=== PATIENT | female | born 1950 | race Caucasian/White ===

== ENCOUNTER 2016-08-12 01:53 | Inpatient (IN) | payer OTHER ==
[~2016-08-12] VITALS: Ht 144.8 cm; Wt 57.2 kg
[~2016-08-12 01:53] MED LIST: PRAVASTATIN SOD40 M2 PO
--- NOTE | 2016-08-12 08:33 | Admission Core Measures ---
Admission Meds I reviewed the following Meds: Current Medications Sig/Radha Start time Last Medication Dose Stop Time Status Admin Cefazolin Sodium 2,000 MG ONCE 08/12 0000 NR (Kefzol-Ancef Inj) 08/12 2359 Pravastatin Sodium 20 MG 1700 08/12 1700 UNVr (Pravachol) Acute Coronary Syndrome Inclusion Criteria ACS Diagnosis No Inpatient Core Measures LDL Reminder: If No, please order W/I first 24hr of stay Congestive Heart Failure Inclusion Criteria CHF Diagnosis No Cerebrovascular accident Inclusion Criteria CVA/TIA Diagnosis No Inpatient Core Measures Bedside Swallow Eval Reminder: If BSE failed, place ST order Antithrombotic Reminder: Order Antithrombotic Medication by end of day 2 Antithrombotic Reminder: Document Reason Antithrombotic Not ordered by end of day 2 AFIB/Flutter Reminder: If Present, add to problem list AFIB/Flutter Reminder: Order Anticoag Medication for pts with AFIB/Flutter Atherosclerosis Reminder: If Present, add to problem list LDL Reminder: If No, please order W/I first 24hr of stay PT Order Reminder: If No, please order Venous thromboembolism Inpatient Core Measures VTE Risk Factors: Age > 40, [facility] prophylaxis d/t No contraindications No VTE Pharm Prophylaxis d/t No contraindications Inclusion Criteria - Per Current guidelines, there needs to be overlap - treatment for the first 5 days of Warfarin therapy. - Parenteral Anticoagulation (IV or SC) needs to be - given along with Warfarin therapy. VTE Diagnosis No VTE Type NONE VTE Confirmed by (Test) NONE Problem List As ranked by this Provider includes Assessment & Plan 1. Status post total hip replacement, right HOME MEDS Home Med List Pravastatin Sodium 40 MG TABLET 1 TAB PO DAILY CHOLESTEROL (Reported)
--- NOTE | 2016-08-12 08:34 | Surg Short-stay <48hrs Dis Sum ---
Visit Information Visit Dates Admission Date: 08/12/16 Discharge Date: 08/12/16 Surgical Short Stay DC Summary Admission Diagnosis: DJD Final Diagnosis: Same, s/p R THR Procedure(s): R THR - See operative report Summary/Significant Findings: Pt was admitted on 08/12 after undergoing a R THR by Dr Srinivasan. Postoperatively , she worked with PT. Her pain was well controlled on oral medication. She was tolerating a regular diet. She was able to void spontaneously. She was cleared by PT for discharge to home with services. Condition at Discharge: good Discharge Disposition: home health services Discharge instructions provided to patient/family: Yes Post discharge follow-up plan: Keep scheduled appt with Dr Srinivasan. Call sooner if needed.
--- NOTE | 2016-08-12 08:37 | Patient Discharge Instructions ---
Discharge Instructions General Discharge Information You were seen/treated for: Hip pain You had these procedures: Total hip replacement Watch for these problems: Temp >101, increased redness or drainage of wounds Do not soak the wound: Yes No bath, but you may shower: Yes Other wound care: Keep incision clean and dry. May shower, no bathing Diet Continue normal diet: Yes Activity Activity Self Limited: Yes Acute Coronary Syndrome Inclusion Criteria At DC or during hospital stay patient has or had the following: ACS DIAGNOSIS No Discharge Core Measures Meds if any: Prescribed or Continued at Discharge Meds if any: NOT Prescribed or Continued at Discharge Congestive Heart Failure Inclusion Criteria At DC or during hospital stay patient has or had the following: CHF DIAGNOSIS No Discharge Core Measures Meds if any: Prescribed or Continued at Discharge Meds if any: NOT Prescribed or Continued at Discharge Cerebrovascular accident Inclusion Criteria At DC or during hospital stay patient has or had the following: CVA/TIA Diagnosis No Discharge Core Measures Meds if any: Prescribed or Continued at Discharge Meds if any: NOT Prescribed or Continued at Discharge Venous thromboembolism Inclusion Criteria VTE Diagnosis No VTE Type NONE VTE Confirmed by (Test) NONE Discharge Core Measures - Per Current guidelines, there needs to be overlap - treatment for the first 5 days of Warfarin therapy. - If discharged on Warfarin prior to 5 days of - overlap therapy, the patient will need to be - assessed for post discharge needs including - *Post discharge parental anticoagulation - *Warfarin and/or parental anticoagulation education - *Follow up date to check INR post discharge At least 5 days overlap therapy as Inpatient No Meds if any: Prescribed or Continued at Discharge Note: Overlap Therapy is Warfarin and Anticoagulant Meds if any: NOT Prescribed or Continued at Discharge
[2016-08-12] MEDS ORDERED: ASPIRIN EC325 M2 PO (08:39)
[2016-08-12] MEDS ORDERED: MIRALAX17 G1 PO (08:39)
[2016-08-12] MEDS ORDERED: MS CONTIN15 M2 PO (08:39)
[2016-08-12] MEDS ORDERED: DILAUDID2 M1 PO (08:39)
[2016-08-12] MEDS ORDERED: COLACE100 M1 PO (08:39)
--- NOTE | 2016-08-12 10:11 | RADIOLOGY REPORT ---
EXAMINATION: XR HIP, RIGHT CLINICAL INFORMATION: Status post right hip replacement. COMPARISON: None TECHNIQUE: AP and crosstable lateral views of the right hip postop. FINDINGS: Hardware from the total hip replacement is normal. No complications of surgery are identified. There is no dislocation. IMPRESSION: Normal postop hip.
--- NOTE | 2016-08-12 10:50 | PN- Orthopedic ---
Subjective Subjective: Post op check Awake, alert post op Pain tolerable Denies nausea Has not ambulated yet or voided yet Objective Vital Signs and I&Os VSS, afebrile General: alert and oriented times three Chest: clear anteriorly bilaterally, RRR Abd: soft, good bs Ext: warm, no edema, positive sensate, no calf tenderness, good 5/5 [place] BLE Wound: dressed, dry, ice pack in place Assessment/Plan Assessment/Plan 65 yo female s/p R THR pain management PT - WBAT await void Follow up with PT for dc planning Core Measures/Miscellaneous Venous Thromboembolism VTE Risk Factors: Age > 40, Surgery VTE Contraindications: No Contraindications VTE Diagnosis: No VTE Type: NONE VTE Confirmed by (Test): NONE Beta Gregoria Is Beta Gregoria a Home Med? No Antibiotics Is Patient on Antibiotics? Yes If Yes: prophylaxis
[2016-08-12 11:10] VITALS: BP 108/50
--- NOTE | 2016-08-12 11:46 | NUR ---
NURSING NOTE: 1110AM PT ARRIVED TO FLOOR VIA STRETCHER WITH DISTRIBUTION FROM PACU S/P R THR. PT AWAKE, A/OX3, VITALS OBTAIND AND STABLE, DENIES PAIN, AMBULATED WITH P.T/RW TO CHAIR, IVF PER MD ORDER, TEDS PLACED, COFFEE GIVEN, PT ORDERED LUNCH TRAY, INFO PACKET GIVEN, HOURYL ROUDNING EXPLAIND, HIP KIT GIVEN, ICE INTACT, DSG C/D/I. NEEDS IN REACH, FAMILY AT BEDISDE. SEE ADMSSION ASSESSMENTS.
[2016-08-12 13:00] VITALS: BP 106/70
[2016-08-12 14:33] VITALS: BP 106/70
--- NOTE | 2016-08-12 15:26 | NUR ---
NURSING NOTE: ZOFRAN GIVEN FOR NAUSEA, PT DTV AT THIS TIME, STATES "I DONT HAVE THE URGE MY BUTT IS STILL NUMB." Anne CAMPOS AWARE, NO FURTEHR ORDERS. REPORT GIVEN TO NEXT SHIFT RN
--- NOTE | 2016-08-12 15:34 | Operative Report ---
Operative/Inv Procedure Report Surgery Date: 08/12/16 Name of Procedure: Right total hip replacement Pre-Operative Diagnosis: Primary right hip DJD Post-Operative Diagnosis: Same Estimated Blood Loss: 250 Surgeon/Sliver Machine Operator: DALILA PRESCOTT,IZZY Poole Anesthesia: block Operative/Procedure Note Note: Description of Procedure: The patient was taken to the operating room and positively identified. After induction of spinal anesthesia and administration of appropriate pre-operative antibiotics, the patient was positioned supine on the operating room table and all bony prominences were well padded. After performing a surgical timeout, the right lower extremity was prepped and draped in the usual sterile fashion. A direct anterior approach was made to the right hip. The incision was carried sharply through superficial soft tissues to the level of the fascia. Meticulous hemostasis was maintained with Bovie electocautery. The fascia over the tensor fascia frnaco muscle was opened sharply and the interval between the TFL and the sartorius was entered bluntly taking care to stay lateral to the lateral femoral cutaneous nerve. Retractors were placed around the femoral neck and the pericapsular fat was identified. The ascending branches of the lateral femoral circumflex vessels were identified and carefully coagulated. The pericapsular fat and anterior capsule were then resected. A napkin ring osteotomy was performed and the femoral head was removed without difficulty. Attention was then turned to the acetabulum. After appropriate placement of retractors, the acetabulum was exposed. Soft tissue was cleaned from the acetabular margin and notch. Overhanging osteophytes were removed and the teardrop was exposed. The acetabulum was then sequentially reamed to accept a 52 mm Tri Tritanium hemispherical solid back shell. This was impacted into place in the appropriate position and fitted with a 32 mm Trident X3 zero degree polyethylene insert. Attention was then turned to the femur. After performing the appropriate ligament releases, the proximal femur was exposed. It was then sequentially broached to accept a size #4 [place] Accolade 2 stem. This was trialed for leg length and stability. The trial component was removed and the final component was impacted into place. The trunnion was carefully cleaned and fit with a 32 mm, -4 Biolox delta ceramic femoral head. The hip was reduced and put through a full range of motion and found to be stable. The articular space was then irrigated with sterile saline. The periarticular soft tissues were infilitrated with Marcaine. The fascial layer was closed with interrupted #1 vicryl suture and the skin was re-approximated with interrupted 2 -0 vicryl. The skin was closed with a running 3-0 V-Lock suture. Steri-strips and a sterile dressing were applied. The patient was awakened and taken to the recovery room in satisfactory condition.
[2016-08-12] MEDS ORDERED: ZOFRAN ODT4 M1 SL (16:36)
== END 2016-08-12 18:18 | disposition home health service (06) | DRG 470 ==
LOC: SDA 01:53 → ENRESERV 10:12 → ENTRNSPT 10:22 → CMPTRNSPT 11:05 → 2NB 11:10
PROVIDERS: ADMIT Orthopaedic Surgery
PROC: 0SR904A Replacement of Right Hip Joint with Ceramic on Polyethylene Synthetic Substitute, Uncemented, Open Approach (ICD-10-PCS; principal; 2016-08-12)
DX: M16.11 Unilateral primary osteoarthritis, right hip (principal); E78.00 Pure hypercholesterolemia, unspecified
CPT/HCPCS: 2NBP; 73502-RT; 97110-GO; 97116-GO; 97161-GP; 97530-GO; J0690; J0735; J2405; J7042